=== PATIENT | female | born 1995 | race Caucasian/White ===

== ENCOUNTER 2016-03-09 16:00 | Inpatient (IN) | payer MEDICAID, OTHER ==
[~2016-03-09] VITALS: Ht 157.5 cm; Wt 76.3 kg
[2016-03-09 16:28] VITALS: Ht 157.5 cm; Wt 76.3 kg
[2016-03-09] MEDS ORDERED: PRENAT PO (16:28)
[2016-03-09 16:29] VITALS: BP 119/81; PULSE 82; RESP 18
[2016-03-09] MEDS ORDERED: CARBOPROST 250 MCG INJ IM PRN (16:30)
[2016-03-09] MEDS ORDERED: OXYTOCIN 30 UNITS/LR 500 ML IV SCH ×2 (16:30)
[2016-03-09] MEDS ORDERED: METHYLERGONOVINE 0.2 MG INJ IM PRN (16:30)
[2016-03-09] MEDS ORDERED: IBUPROFEN 600 MG TAB PO PRN (16:30)
[2016-03-09] MEDS ORDERED: LACTATED RINGER'S 1,000 ML IV PRN (16:30)
[2016-03-09] MEDS ORDERED: MISOPROSTOL 200 MCG TAB PR PRN (16:30)
[2016-03-09] MEDS ORDERED: OXYTOCIN 30 UNITS/LR 500 ML IV PRN (16:30)
[2016-03-09] MEDS ORDERED: LIDOCAINE 1% (MPF) 30 ML INJ INJ PRN (16:30)
[2016-03-09] MEDS: LACTATED RINGER'S 1,000 ML IV SCH ×2 (16:43→23:15)
[2016-03-09 17:27] LABS: BASOPHILS % 0.2 % (0.0-2.0); EOSINOPHILS % 0.4 % (0.0-7.0); HEMATOCRIT 37.9 % (37.0-47.0); HEMOGLOBIN 12.8 g/dl (12.0-16.0); LYMPHOCYTES # 2.3 10^3/ul (0.8-2.9); LYMPHOCYTES % 31.7 % (15.0-51.0); MEAN CORPUSCULAR HEMOGLOBIN 27.9 pg (29.0-33.0); MEAN CORPUSCULAR HGB CONC 33.8 g/dl (32.0-37.0); MEAN CORPUSCULAR VOLUME 82.6 fl (82.0-101.0); MEAN PLATELET VOLUME 8.5 fl (7.4-10.4); MONOCYTE # 0.6 10^3/ul (0.3-0.9); MONOCYTES % 7.6 % (0.0-11.0); NEUTROPHIL # 4.4 10^3/ul (1.6-7.5); NEUTROPHILS % 60.1 % (39.0-77.0); PLATELET COUNT 258 10^3/UL (140-440); RED BLOOD COUNT 4.59 10^6/ul (4.20-5.40); UNCORRECTED WBC 7.3 10^3/ul (4.8-10.8); WHITE BLOOD COUNT 7.3 10^3/ul (4.8-10.8)
[2016-03-09 17:38] LABS: INR 0.88; PROTIME 11.9 Sec (12.2-14.2); PT RATIO 0.9
[2016-03-09 17:39] LABS: PARTIAL THROMBOPLASTIN TIME 25.8 Sec (25.0-35.0)
[2016-03-09 17:40] LABS: CONDITION 1; LH ANALYZER COMMENTS 1
[2016-03-10] MEDS: OXYTOCIN 30 UNITS/LR 500 ML IV SCH ×2 (00:24→17:10)
[2016-03-10] MEDS: LACTATED RINGER'S 1,000 ML IV SCH ×3 (06:50→21:06)
[2016-03-11] MEDS: LACTATED RINGER'S 1,000 ML IV SCH ×4 (05:35→23:49)
[2016-03-11] MEDS ORDERED: FENTAnyl 2MCG/ML-ROPIV 0.2% 100 ML ONE (10:25)
[2016-03-11] MEDS ORDERED: NALOXONE (0.4 MG/ML) INJ IV PRN (12:30)
[2016-03-11] MEDS: FENTAnyl 2MCG/ML-ROPIV 0.2% 100 ML BAG EPI SCH (18:15)
[2016-03-11] MEDS: OXYTOCIN 30 UNITS/LR 500 ML IV SCH (23:04)
[2016-03-11] MEDS ORDERED: ACETAMINOPHEN 500 MG TAB PO STA (23:43)
[2016-03-12] VITALS (12 sets, daily range): BP systolic 92–112; BP diastolic 52–65; PULSE 84–106; RESP 17–20
[2016-03-12] MEDS ORDERED: AMPICILLIN 2 GM/NS (PMX) 100 ML IVPB ONE (01:30)
[2016-03-12] MEDS: FENTAnyl 2MCG/ML-ROPIV 0.2% 100 ML BAG EPI SCH (02:32)
[2016-03-12] MEDS ORDERED: OXYTOCIN 30 UNITS/LR 500 ML IV PRN (05:00)
[2016-03-12] MEDS ORDERED: CARBOPROST 250 MCG INJ IM PRN (05:00)
[2016-03-12] MEDS ORDERED: LANOLIN 7 GM TUBE TOP PRN (05:00)
[2016-03-12] MEDS ORDERED: OXYCODONE/ASPIRIN (4.88/325) TAB PO PRN (05:00)
[2016-03-12] MEDS ORDERED: MISOPROSTOL 200 MCG TAB PR PRN (05:00)
[2016-03-12] MEDS ORDERED: METHYLERGONOVINE 0.2 MG INJ IM PRN (05:00)
[2016-03-12] MEDS ORDERED: AMPICILLIN 1 GM/NS (PMX) 50 ML IVPB SCH (05:00)
--- NOTE | 2016-03-12 05:10 | LDN ---
Date/Time of Note Date/Time of Note DATE: 03/12/16 TIME: 05:07 Delivery Summary of a viable baby girl weighing 3635 grams or 8#, 19.5" long and with Apgars of 8/9. Placenta Delivered: Spontaneously Meconium: none Perineum intact?: No Perineal laceration: 1 Perineal laceration repair: Small first degree perineal and left vaginal lacerations repaired with 2-0 chromic. Anesthesia type: Epidural Sponge & Needle done & correct: Yes All needle counts correct: Yes Any foreign bodies felt in the: No (vagina) Problems: Delivery Information Sex Infant Sex: female Apgars 1 Minute: 8 5 Minute: 9 Suctioning Nose & mouth suctioned at malka: Yes Delee suction performed: No Umbilical Cord Umbilical cord with: 3 Vessels Cord presentations: no nuchal cord Cord Blood was obtained: Yes Mother & Baby Disposition Disposition Mom & Baby to Maternity; Good: Yes Baby to NICU: No ALEXANDRIA TORRES MD Mar 12, 2016 05:10
--- NOTE | 2016-03-12 05:17 | HP ---
Date/Time of Note Date/Time of Note DATE: 03/12/16 TIME: 05:10 OB - History Hx of Present Free Text/Dictation 20 y.o. G1 with an IUP at 40 weeks 2 days at admission admitted for induction for postdates. Estimated Due Date: Mar 07, 2016 : 1 Para: 0 Care: Good Care Ultrasounds: Normal mid trimester US Obstetrical Complications: None Medical Complications: None Past Family/Social History * Past Medical, Surgical, Family and Obstetric Histories reviewed from chart. Blood Type: O+ Rubella: immune RPR/VDRL: Negative GBS Status: Negative HBsAG: Negative OB Admission Exam Vital Signs Vital Signs Vital Signs Date Time Temp Pulse Resp B/P Pulse Ox O2 Delivery O2 Flow Rate FiO2 03/09/16 16:29 97.7 82 18 119/81 Room Air Physical Exam HEENT: WNL Heart: Rhythm Normal Lungs: Clear Abdomen: WNL Extremities: Edema (2+) Membranes: Intact Heart Rate: 140's Accelerations: Accelerations Present Decelerations: No Decelerations Varibility: Moderate Contractions on Admission: None Last 72 hours Lab Results CBC & BMP 03/09/16 16:49 OB Assessment/Plan Reason for admission: induction of labor Plan: Induction ALEXANDRIA TORRES MD Mar 12, 2016 05:17
[2016-03-12] MEDS ORDERED: ACETAMINOPHEN 325 MG TAB PO PRN (05:30)
[2016-03-12] MEDS: CEFAZOLIN 2 GM/50 ML (PMX) 50 ML IV SCH ×3 (05:46→21:56)
[2016-03-12] MEDS: IBUPROFEN 600 MG TAB PO SCH ×3 (07:02→13:02)
[2016-03-12 07:56] LABS: ALBUMIN 2.9 g/dl (3.3-4.9)
[2016-03-12 07:57] LABS: POTASSIUM 3.5 mmol/L (3.5-5.1)
[2016-03-12 07:58] LABS: CREATININE 0.85 mg/dl (0.44-1.00)
[2016-03-12 07:59] LABS: ALBUMIN/GLOBULIN RATIO 0.82; BILIRUBIN,INDIRECT 0.2 mg/dl (0-1.1); BILIRUBIN,TOTAL 0.2 mg/dl (0.2-1.3); TOTAL PROTEIN 6.4 g/dl (6.1-8.1)
[2016-03-12 08:00] LABS: CALCIUM 8.5 mg/dl (8.4-10.2)
[2016-03-12 08:24] LABS: ADD UMIC YES; URINE BILIRUBIN (Dip) 1+ (NEGATIVE); URINE BLOOD (Dip) 3+ (NEGATIVE); URINE COLOR RED (YELLOW); URINE GLUCOSE (Dip) NEGATIVE (NEGATIVE); URINE KETONES (Dip) 15 (NEGATIVE); URINE LEUKOCYTE ESTERASE (Dip) 2+ (NEGATIVE); URINE NITRITE (Dip) POSITIVE (NEGATIVE); URINE TOTAL PROTEIN (Dip) 4+ (NEGATIVE); URINE UROBILINOGEN (Dip) 2.0 E.U./dL (0.1-1.0)
[2016-03-12 08:24] LABS: HEMOGLOBIN 12.4 g/dl (12.0-16.0); LYMPHOCYTES # 0.9 10^3/ul (0.8-2.9); LYMPHOCYTES % 4.6 % (15.0-51.0); MEAN CORPUSCULAR HEMOGLOBIN 28.5 pg (29.0-33.0); MEAN CORPUSCULAR HGB CONC 34.6 g/dl (32.0-37.0); MEAN CORPUSCULAR VOLUME 82.3 fl (82.0-101.0); MEAN PLATELET VOLUME 9.1 fl (7.4-10.4); MONOCYTE # 1.2 10^3/ul (0.3-0.9); NEUTROPHIL # 17.3 10^3/ul (1.6-7.5); NEUTROPHILS % 89.4 % (39.0-77.0); PLATELET COUNT 206 10^3/UL (140-440); RED BLOOD COUNT 4.37 10^6/ul (4.20-5.40); RED CELL DISTRIBUTION WIDTH 15.6 % (11.5-14.5); UNCORRECTED WBC 19.4 10^3/ul (4.8-10.8); WHITE BLOOD COUNT 19.4 10^3/ul (4.8-10.8)
[2016-03-12 08:29] LABS: CONDITION 1; LH ANALYZER COMMENTS 1
[2016-03-12] MEDS: OXYTOCIN 30 UNITS/LR 500 ML IV SCH ×2 (08:44→09:00)
[2016-03-12] MEDS: IBUPROFEN LIQUID (PED) 20 MG/ML CUP PO SCH ×3 (08:53→19:30)
[2016-03-12 09:21] LABS: ICTOTEST NEGATIVE (NEGATIVE)
[2016-03-12 09:22] LABS: BACTERIA,URINE MANY; URINE RBCS >200 /HPF (0)
[2016-03-12] MEDS: MAGNESIUM SULFATE 20 GM/500 ML 500 ML IV SCH ×2 (09:29→18:40)
[2016-03-12] MEDS: LACTATED RINGER'S 1,000 ML IV* SCH (13:00)
[2016-03-12 18:08] LABS: ADD UMIC YES; URINE BILIRUBIN (Dip) NEGATIVE (NEGATIVE); URINE BLOOD (Dip) 2+ (NEGATIVE); URINE COLOR LT. YELLOW (YELLOW); URINE GLUCOSE (Dip) NEGATIVE (NEGATIVE); URINE KETONES (Dip) NEGATIVE (NEGATIVE); URINE LEUKOCYTE ESTERASE (Dip) NEGATIVE (NEGATIVE); URINE NITRITE (Dip) NEGATIVE (NEGATIVE); URINE TOTAL PROTEIN (Dip) NEGATIVE (NEGATIVE); URINE UROBILINOGEN (Dip) 0.2 E.U./dL (0.1-1.0)
[2016-03-12 18:30] LABS: TRANSITIONAL EPI CELLS,URINE OCCASIONAL
[2016-03-13] VITALS (12 sets, daily range): BP systolic 104–121; BP diastolic 55–76; PULSE 75–97; RESP 16–19
[2016-03-13] MEDS: IBUPROFEN LIQUID (PED) 20 MG/ML CUP PO SCH ×4 (01:17→20:18)
[2016-03-13] MEDS: LACTATED RINGER'S 1,000 ML IV* SCH (01:18)
[2016-03-13] MEDS: MAGNESIUM SULFATE 20 GM/500 ML 500 ML IV SCH (05:30)
[2016-03-13 08:25] LABS: BASOPHILS % 0.2 % (0.0-2.0); EOSINOPHILS # 0.1 10^3/ul (0.0-0.5); EOSINOPHILS % 0.5 % (0.0-7.0); HEMATOCRIT 30.7 % (37.0-47.0); HEMOGLOBIN 10.1 g/dl (12.0-16.0); LYMPHOCYTES # 2.9 10^3/ul (0.8-2.9); LYMPHOCYTES % 20.2 % (15.0-51.0); MEAN CORPUSCULAR HEMOGLOBIN 28.4 pg (29.0-33.0); MEAN CORPUSCULAR VOLUME 85.9 fl (82.0-101.0); MEAN PLATELET VOLUME 8.2 fl (7.4-10.4); MONOCYTE # 0.8 10^3/ul (0.3-0.9); MONOCYTES % 5.6 % (0.0-11.0); NEUTROPHIL # 10.7 10^3/ul (1.6-7.5); NEUTROPHILS % 73.5 % (39.0-77.0); PLATELET COUNT 207 10^3/UL (140-440); RED BLOOD COUNT 3.57 10^6/ul (4.20-5.40); RED CELL DISTRIBUTION WIDTH 15.6 % (11.5-14.5); UNCORRECTED WBC 14.6 10^3/ul (4.8-10.8); WHITE BLOOD COUNT 14.6 10^3/ul (4.8-10.8)
[2016-03-13 08:49] LABS: CONDITION 1; LH ANALYZER COMMENTS 1
--- NOTE | 2016-03-13 10:14 | PN ---
Date/Time of Note Date/Time of Note DATE: 03/13/16 TIME: 10:13 OB Subjective Subjective Subjective day 1 Vital sign stable abdomen soft uterus firm lochia normal extremity normal ambulation recommended Laboratory Tests Test 03/12/16 12:55 03/12/16 17:40 03/12/16 20:02 03/13/16 00:55 Magnesium Level 3.9mg/dl 5.6mg/dl 5.9mg/dl Urine Bilirubin NEGATIVE Urine Clarity CLEAR Urine Color LT. YELLOW Urine Glucose NEGATIVE% Urine Hemoglobin 2+ Urine Ketones NEGATIVE Urine Leukocyte Esterase NEGATIVE Urine Microscopic RBC 10-25/HPF Urine Microscopic WBC 0-2/HPF Urine Nitrite NEGATIVE Urine Specific [place] 1.015 Urine Total Protein NEGATIVE Urine Transitional Epithelial Cells OCCASIONAL Urine Urobilinogen 0.2 E.U./dL Urine pH 5.5 Test 03/13/16 07:40 Basophils # 0.010^3/ul Basophils % 0.2% Blood Morphology Comment Eosinophils # 0.110^3/ul Eosinophils % 0.5% Hematocrit 30.7% Hemoglobin 10.1g/dl Lymphocytes # 2.910^3/ul Lymphocytes % 20.2% Magnesium Level 6.6mg/dl Mean Corpuscular Hemoglobin 28.4pg Mean Corpuscular Hemoglobin Concent 33.0g/dl Mean Corpuscular Volume 85.9fl Mean Platelet Volume 8.2fl Monocytes # 0.810^3/ul Monocytes % 5.6% Neutrophils # 10.710^3/ul Neutrophils % 73.5% Nucleated Red Blood Cells # 0.010^3/ul Nucleated Red Blood Cells % 0.0/100WBC Platelet Count 30878^3/UL Red Blood Count 3.5710^6/ul Red Cell Distribution Width 15.6% White Blood Count 14.610^3/ul Current Medications Medications (Trade) Dose Ordered Sig/Dottie Route PRN Reason Start Time Stop Time Status Last Admin Dose Admin Lactated Ringer's (Lr) 1,000 ml @ 125 mls/hr Q8H IV 03/09/16 16:15 03/12/16 05:05 DC 03/11/16 23:49 Lidocaine 30 ml 30 ml ONCE PRN INJ EPISIOTOMY/TEARING 03/09/16 16:30 03/12/16 05:05 DC Oxytocin/Lactated Ringer's 500 ml @ 125 mls/hr ONCE -MAY REPEAT X1 IV 03/09/16 16:30 03/12/16 05:05 DC Oxytocin/Lactated Ringer's 500 ml @ 125 mls/hr ONCE IV 03/09/16 16:30 03/12/16 05:05 DC Ibuprofen 600 mg 600 mg ONCE PRN PO Mild Pain (Pain Score 1-3) 03/09/16 16:30 03/12/16 05:05 DC Lactated Ringer's 1,000 ml @ 2,000 mls/hr Q30M PRN IV PRE-EPIDURAL BOLUS 03/09/16 16:30 03/12/16 05:05 DC 03/11/16 10:09 Oxytocin/Lactated Ringer's 500 ml @ 0 mls/hr ONCE PRN IV For Hemorrhage Management 03/09/16 16:30 03/12/16 05:05 DC Methylergonovine Maleate (Methergine) 0.2 mg ONCE PRN IM VAGINAL BLEEDING 03/09/16 16:30 03/12/16 05:05 DC 03/12/16 04:33 Carboprost Tromethamine (Hemabate) 250 mcg ONCE PRN IM VAGINAL BLEEDING 03/09/16 16:30 03/12/16 05:05 DC Misoprostol 1000 mcg 1,000 mcg ONCE PRN OR VAGINAL BLEEDING 03/09/16 16:30 03/12/16 05:05 DC Oxytocin/Lactated Ringer's 500 ml @ 0 mls/hr Q0M IV 03/09/16 21:30 03/12/16 05:05 DC 03/11/16 23:04 Fentanyl/ Ropivacaine 100 ml @ ud STK-MED ONCE .ROUTE 03/11/16 10:25 03/11/16 10:26 DC Naloxone HCl (Narcan) 0.2 mg Q2M PRN IV FOR RESP RATE 8 OR LESS 03/11/16 12:30 03/12/16 05:05 DC Fentanyl/ Ropivacaine 100 ml EPIDURAL (PCEA) EPI 03/11/16 12:30 03/12/16 05:05 DC 03/12/16 02:32 Acetaminophen 1000 mg 1,000 mg ONCE STAT PO 03/11/16 23:43 03/11/16 23:56 DC 03/12/16 00:05 Ampicillin 100 ml @ 100 mls/hr ONCE ONCE IVPB 03/12/16 01:30 03/12/16 02:29 DC 03/12/16 01:44 Ampicillin 50 ml @ 100 mls/hr Q4 IVPB 03/12/16 05:00 03/12/16 05:05 DC Oxytocin/Lactated Ringer's 500 ml @ 125 mls/hr Q4H IV 03/12/16 05:00 03/12/16 12:59 DC 03/12/16 08:44 Lactated Ringer's 1,000 ml @ 125 mls/hr Q8H IV* 03/12/16 05:00 03/13/16 09:35 DC 03/13/16 01:18 Cefazolin Sodium/ Dextrose (Ancef 2 Gm/50 ml (Pmx)) 50 ml @ 100 mls/hr Q8 IV 03/12/16 06:00 03/12/16 22:29 DC 03/12/16 21:56 Ibuprofen (Motrin) 600 mg Q6 PO 03/12/16 06:00 03/12/16 18:21 DC Oxycodone/Aspirin (Percodan) 1 tab Q3H PRN PO PAIN LEVEL 1-5 03/12/16 05:00 Lanolin (Odp-Z-Mytxbp) 1 applic BEDSIDE MEDICATION PRN TOP BEDSIDE FOR CORNELIO TO NIPPLES 03/12/16 05:00 03/13/16 05:30 Diphtheria/ Tetanus/Acell Pertussis 0.5 ml 0.5 ml ONCE ONCE IM* 03/14/16 09:00 03/14/16 09:01 Oxytocin/Lactated Ringer's 500 ml @ 0 mls/hr ONCE PRN IV For Hemorrhage Management 03/12/16 05:00 Methylergonovine Maleate (Methergine) 0.2 mg ONCE PRN IM VAGINAL BLEEDING 03/12/16 05:00 Carboprost Tromethamine (Hemabate) 250 mcg ONCE PRN IM VAGINAL BLEEDING 03/12/16 05:00 Misoprostol (Cytotec) 1,000 mcg ONCE PRN OR VAGINAL BLEEDING 03/12/16 05:00 Acetaminophen (Tylenol Tab) 650 mg Q4H PRN PO PAIN AND OR ELEVATED TEMP 03/12/16 05:30 03/12/16 05:46 Ibuprofen 600 mg 600 mg Q6H PO 03/12/16 07:30 03/13/16 08:19 Magnesium Sulfate (Magnesium Sulfate 20 Gm/500 ml) 500 ml @ 50 mls/hr Q10H IV 03/12/16 09:20 03/13/16 09:35 DC 03/13/16 05:30 CHENCHO BEGUM MD Mar 13, 2016 10:14
[2016-03-14] MEDS: IBUPROFEN LIQUID (PED) 20 MG/ML CUP PO SCH ×2 (01:06→08:23)
[2016-03-14 04:00] VITALS: BP 119/81; PULSE 63; RESP 18
[2016-03-14 08:00] VITALS: BP 129/80
[2016-03-14] MEDS ORDERED: DIPHTH/TET/ACEL PERTUSS (ADULT) 0.5 ML VIAL IM* ONE (09:00)
--- NOTE | 2016-03-14 10:09 | PD.PPDC ---
[employer] Discharge Instruction Condition Patient Condition: Good Activity/Restrictions Activity: Normal Activity May Shower Restrictions: No Exercising No Lifting No Driving No Sexual Activity Nothing in the Vagina No [place] No Tampons, douche Follow-up Follow-up with Physician: 1, 2, Week/Weeks Provider Information: appointment office in one week Return to clinic for [employer] Instructions: Fever greater than 101 Worsening abdominal pain More than 2 pads per hour OB Instructions: Breast Tenderness Blurried Vision Headache CHENCHO BEGUM MD Mar 14, 2016 10:08
--- NOTE | 2016-03-14 10:11 | DS ---
Date/Time of Note Date/Time of Note DATE: 03/14/16 TIME: 10:09 Obstetrical Discharge Record Final Diagnosis Final Diagnosis: Term delivered Vaginal Delivery Obstetrical Delivery: Spontaneous Condition on Discharge Physical Assessment Last Vitals: Vital sign stable afebrile abdomen soft uterus firm lochia normal extremity normal blood pressures running 120s over 80s recommended to make appointment for check in 1 week Voiding: Yes Bowel Movement: Yes Fundus: Firm Calf Tenderness: No Patient Condition: Good CHENCHO BEGUM MD Mar 14, 2016 10:11
== END 2016-03-14 12:25 | disposition home or self-care (01) | DRG 775 ==
LOC: MERGE 16:06 → L-D 16:06 → PP1 03-12 11:15
PROVIDERS: ADMIT Obstetrics & Gynecology; ATTEND Obstetrics & Gynecology
PROC: 10E0XZZ Delivery of Products of Conception, External Approach (ICD-10-PCS; principal; 2016-03-12)
PROC: 0HQ9XZZ Repair Perineum Skin, External Approach (ICD-10-PCS; 2016-03-12)
PROC: 3E0234Z Introduction of Serum, Toxoid and Vaccine into Muscle, Percutaneous Approach (ICD-10-PCS; 2016-03-14)
DX: O48.0 Post-term pregnancy (principal); O70.0 First degree perineal laceration during delivery; Z3A.40 40 weeks gestation of pregnancy; Z37.0 Single live birth; Z23 Encounter for immunization
CPT/HCPCS: 62319; 80053; 81001; 81003; 83735; 84560; 85025; 85610; 85730; 86592; 86900; 86901; 87340; 90715; 99464; J0290; J0690; J2210; J2590; J3010; J3475; J7120

== ENCOUNTER 2018-09-20 18:03 | Emergency (ER) | payer MEDICAID, OTHER ==
[~2018-09-20] VITALS: Ht 154.9 cm; Wt 70.5 kg
[~2018-09-20 18:03] MED LIST: PRENAT PO
[2018-09-20 18:06] VITALS: Ht 154.9 cm; Wt 70.5 kg
--- NOTE | 2018-09-20 19:23 | ERD ---
ER Documentation Chief Complaint Chief Complaint Pt c/o hear "beating hard" pt 9 wks preg HPI 23-year-old female presents the emergency department complaining of "my heart is beating hard." Patient states that since this morning she is had nonspecific nausea with occasional episodes of nonbilious, nonbloody emesis. She began having a sense of palpitations with questionable chest pain. She denied any significant shortness of breath but then felt nauseous again. She denied fevers or chills or sputum production. She denied any abnormal abdominal pain or vaginal bleeding. Her palpitations continued and she was brought to the emergency department for evaluation. ROS All systems reviewed and are negative except as per history of present illness. Medications Home Meds Reported Medications Multivit/Min/Fol Ac/Iron/Pren* ( S*) 1 Tab Tab, 1 TAB PO DAILY, TAB 03/09/16 Allergies Allergies: Coded Allergies: No Known Allergy (Unverified , 08/10/13) PMhx/Soc Hx Miscellaneous Medical Probl: Yes ( 2 Para1) Hx Alcohol Use: No Hx Substance Use: No Hx Tobacco Use: No Smoking Status: Never smoker FmHx Noncontributory for chief complaint with no history of pulmonary embolism Physical Exam Vitals Vital Signs Date Temp Pulse Resp B/P (MAP) Pulse Ox O2 O2 Flow FiO2 Time Delivery Rate 09/20/18 87 22 99/72 (81) 98 Room Air 18:56 09/20/18 98.9 83 24 96/58 (71) 98 Room Air 18:20 09/20/18 98.9 76 16 81/52 (62) 100 18:06 Physical Exam GENERAL: The patient is well developed and appropriate for usual state of health in no apparent distress HEENT: Pupils equal, round, and reactive to light. EOMI. There is no scleral icterus. NECK: C-spine is soft and supple, there is no meningismus. There is no cervical lymphadenopathy. LUNGS: Clear to auscultation bilaterally. There are no rales, wheezes or rhonchi. HEART: Regular rate and rhythm, no murmurs, clicks, rubs or gallops. ABDOMEN: Soft, non-tender, non-distended. There are bowel sounds in all four quadrants. No rebound or guarding. EXTREMITIES: There is no peripheral cyanosis or edema. No focal swelling or erythema. NEURO: The patient moves all four extremities with 5/5 strength. Cranial nerves II - XII are intact. Normal gait. Alert and oriented SKIN: There is no apparent rash or petechiae. HEME/LYMPHATIC: There is no evidence of excessive bruising or lymphedema. PSYCHIATRIC: The patient does not appear anxious or depressed. Result Diagram: 09/20/18181809/20/189 Results 24 hrs Laboratory Tests Test 09/20/18 18:19 White Blood Count 13.6 10^3/ul Red Blood Count 4.36 10^6/ul Hemoglobin 12.9 g/dl Hematocrit 39.3 % Mean Corpuscular Volume 90.1 fl Mean Corpuscular Hemoglobin 29.6 pg Mean Corpuscular Hemoglobin Concent 32.8 g/dl Red Cell Distribution Width 12.1 % Platelet Count 314 10^3/UL Mean Platelet Volume 8.9 fl Immature Granulocytes % 0.400 % Neutrophils % 59.5 % Lymphocytes % 33.1 % Monocytes % 6.1 % Eosinophils % 0.7 % Basophils % 0.2 % Nucleated Red Blood Cells % 0.0 /100WBC Immature Granulocytes # 0.050 10^3/ul Neutrophils # 8.1 10^3/ul Lymphocytes # 4.5 10^3/ul Monocytes # 0.8 10^3/ul Eosinophils # 0.1 10^3/ul Basophils # 0.0 10^3/ul Nucleated Red Blood Cells # 0.0 10^3/ul D-Dimer 284.89 ng/ml D-Dimer Comment Sodium Level 137 mmol/L Potassium Level 3.4 mmol/L Chloride Level 105 mmol/L Carbon Dioxide Level 26 mmol/L Anion Gap 6 Blood Urea Nitrogen 11 mg/dl Creatinine 0.59 mg/dl Est Glomerular Filtrat Rate mL/min > 60 mL/min Glucose Level 135 mg/dl Calcium Level 9.2 mg/dl Troponin I 0.048 ng/ml Procedures/MDM Patient was taken to a room, seen and evaluated. Comfort measures were initiated. Diagnostic tests were ordered and reviewed. 3 LEAD RHYTHM STRIP: Normal sinus rhythm without ectopy EK lead EKG reviewed by myself: Normal Sinus Rhythm Incomplete right bundle branch block No ST elevation, depression, or T wave inversion Impression: Normal EKG RADIOLOGY: Reviewed with the radiologist REEVALUATION: 1919: Diagnostic tests were appreciated and discussed with the patient. Upon reevaluation, patient appeared comfortable with no ongoing chest pain or shortness of breath. MEDICAL DECISION MAKIN-year-old gravid female presents the emergency department with palpitations. Differential diagnosis entertained was broad and potential high acuity. Her diagnostic evaluation shows a live intrauterine preg kulwinder with no obvious complications of the . Her blood counts are normal and she has no evidence of infection. Her negative d-dimer proved her to be low risk for pulmonary embolism and her chest x-ray shows no indications of other significant causes of possible chest pain. At this time, she appears to be clinically nontoxic after reassurance and seems appropriate for discharge. Departure Diagnosis: Primary Impression: Chest pain Condition: Stable Patient Instructions: Chest Pain, Uncertain Cause Additional Instructions: Consulte a aj mdico para el seguimiento segn lo discutido. Lleve ian copia de los resultados de aj prueba, si corresponde, a esta visita de seguimiento. Consulte a aj mdico o regrese aqu si evelyn sntomas no mejoran deshawn se esperaba. En cualquier momento, regrese al departamento de emergencias por cualquier cambio o empeoramiento en evelyn sntomas. CASSIDY WAYNE Sep 20, 2018 19:23
[2018-09-20 19:43] VITALS: BP 99/72; PULSE 94; RESP 22
== END 2018-09-20 19:45 | disposition home or self-care (01) ==
LOC: E/R 18:03
DX: O99.419 Diseases of the circulatory system complicating pregnancy, unspecified trimester (principal); R07.89 Other chest pain; Z3A.09 9 weeks gestation of pregnancy
CPT/HCPCS: 36415; 71045; 76801; 76817; 80048; 84484; 85025; 85378; 86850; 86900; 86901; Z7502; 93005